=== PATIENT | male | born 1960 | race Caucasian/White ===

== ENCOUNTER 2018-11-09 10:42 | Emergency (ER) | payer SELFPAY ==
--- NOTE | 2018-11-09 11:57 | CR ---
Chest: Portable view of the chest was obtained. Comparison: No prior chest x-ray. Heart size is within normal limits for portable technique. Tortuous thoracic aorta is seen. Lungs are clear. Bony structures are grossly intact. Impression: 1. Nothing acute is appreciated on portable chest x-ray. Diagnostic code #1
--- NOTE | 2018-11-09 12:06 | EDM.PDOC ---
ED HPI GENERAL MEDICAL PROBLEM - General Chief Complaint: Cardiovascular Problem Stated Complaint: SOB AND HIGH BLOOD PRESSURE SENT BY [facility] Time Seen by Provider: 11/09/18 11:16 Source of Information: Reports: Patient, RN Notes Reviewed - History of Present Illness INITIAL COMMENTS - FREE TEXT/NARRATIVE: 58-year-old male became ill with cough, mild nasal and sinus congestion about 5 days ago. He was seen at [facility] Wednesday 4 days ago, diagnosed with influenza based on clinical symptoms. States that his cough has actually improved a fair amount although he still does have intermittent coughing occasionally productive of colored phlegm. Did have fever chills achiness for 5 days ago but those symptoms have resolved. However he states his blood pressure was extremely high about 5 days ago in the 190 some range systolic, he did take one of his mother's blood pressure meds and that did seem to help. 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 He also has been somewhat more short of breath with exertion the past few days. He did feel well enough to shovel some snow yesterday. He presented to the walk-in clinic [facility] today with the above symptoms. They felt he should be worked up. The ED. He states his blood pressure has been borderline high for several years. He has put off having that treated. No personal history for diabetes heart disease or other known medical problems. He does not smoke. - Related Data Allergies Allergy/AdvReac Type Severity Reaction Status Date / Time No Known Allergies Allergy Verified 11/09/18 11:07 Home Meds: Home Meds Aspirin [Adult Aspirin] 81 mg PO DAILY 11/09/18 [History] Past Medical History HEENT History: Reports: Impaired Vision Respiratory History: Reports: SOB Gastrointestinal History: Reports: GERD Neurological History: Reports: Head Trauma - Infectious Disease History Infectious Disease History: Reports: Chicken Pox, Influenza, Measles, Mumps, Rubella - Past Surgical History HEENT Surgical History: Reports: Oral Surgery GI Surgical History: Reports: Appendectomy, Hernia, Abdominal Social & Family History - Family History Family Medical History: Noncontributory - Tobacco Use Smoking Status *Q: Former Smoker Used Tobacco, but Quit: Yes Month/Year Tobacco Last Used: 09/2018 - Caffeine Use Caffeine Use: Reports: None - Recreational Drug Use Recreational Drug Use: No ED ROS GENERAL - Review of Systems Review Of Systems: See Below Constitutional: Denies: Fever, Chills, Diaphoresis HEENT: Reports: Rhinitis, Sinus Problem. Denies: Throat Pain Respiratory: Reports: Cough. Denies: Shortness of Breath Cardiovascular: Denies: Chest Pain GI/Abdominal: Denies: Abdominal Pain, Nausea, Vomiting Musculoskeletal: Reports: Other (generalized achiness, now better) Skin: Reports: No Symptoms Neurological: Reports: No Symptoms ED EXAM, GENERAL - Physical Exam Exam: See Below General Appearance: Alert, No Apparent Distress Eye Exam: Bilateral Eye: PERRL Throat/Mouth: Normal Inspection, Normal Oropharynx Head: Atraumatic Neck: Supple Respiratory/Chest: No Respiratory Distress, Lungs Clear, Normal Breath Sounds, Chest Non-Tender Cardiovascular: Regular Rate, Rhythm GI/Abdominal: Soft, Non-Tender Back Exam: No: CVA Tenderness (L), CVA Tenderness (R) Extremities: Normal Inspection. No: Pedal Edema, Leg Pain, Increased Warmth, Redness Neurological: Alert, Oriented, No Motor/Sensory Deficits Skin Exam: Warm, Dry, Normal Color EKG INTERPRETATION EKG Date: 11/09/18 Rhythm: NSR [place]: Normal P-Wave: Present QRS: Normal ST-T: Elevated (miminial elevation ant. leads.) Course - Vital Signs Last Recorded V/S: Last Vital Signs Temp 97.2 F 11/09/18 11:03 Pulse 71 11/09/18 11:03 Resp 19 11/09/18 11:03 BP 159/95 H 11/09/18 11:03 Pulse Ox 96 11/09/18 11:03 - Orders/Labs/Meds Orders: Active Orders 24 hr Category Date Time Status EKG 12 Lead [EKG Documentation Completion] [RC] STAT Care 11/09/18 11:30 Active Labs: Laboratory Tests 11/09/18 11/09/18 Range/Units 11:45 11:45 WBC 6.37 (4.23-9.07) K/mm3 RBC 4.74 (4.63-6.08) M/mm3 Hgb 13.6 L (13.7-17.5) gm/L Hct 40.7 (40.1-51.0) % MCV 85.9 (79.0-92.2) fl MCH 28.7 (25.7-32.2) pg MCHC 33.4 (32.2-35.5) g/dl RDW Std Deviation 40.3 (35.1-43.9) fL Plt Count 193 (163-337) K/mm3 MPV 9.6 (9.4-12.3) fl Neut % (Auto) 43.5 (34.0-67.9) % Lymph % (Auto) 39.2 (21.8-53.1) % [place] % (Auto) 15.5 H (5.3-12.2) % Eos % (Auto) 1.1 (0.8-7.0) Baso % (Auto) 0.5 (0.1-1.2) % Neut # (Auto) 2.77 (1.78-5.38) K/mm3 Lymph # (Auto) 2.50 (1.32-3.57) K/mm3 [place] # (Auto) 0.99 H (0.30-0.82) K/mm3 Eos # (Auto) 0.07 (0.04-0.54) K/mm3 Baso # (Auto) 0.03 (0.01-0.08) K/mm3 Manual Slide Review Normal smear Sodium 142 (136-145) mEq/L Potassium 4.0 (3.5-5.1) mEq/L Chloride 107 (98-107) mEq/L Carbon Dioxide 25 (21-32) mEq/L Anion Gap 14.0 (5-15) BUN 19 H (7-18) mg/dL Creatinine 1.1 (0.7-1.3) mg/dL Est Cr Clr Drug Dosing 70.11 mL/min Estimated GFR (MDRD) > 60 (>60) mL/min BUN/Creatinine Ratio 17.3 (14-18) Glucose 105 (74-106) mg/dL Calcium 9.2 (8.5-10.1) mg/dL Total Bilirubin 0.4 (0.2-1.0) mg/dL AST 46 H (15-37) U/L ALT 88 H (16-63) U/L Alkaline Phosphatase 81 (46-116) U/L Troponin I < 0.017 (0.00-0.056) ng/mL C-Reactive Protein 0.9 (<1.0) mg/dL Total Protein 7.2 (6.4-8.2) g/dl Albumin 3.6 (3.4-5.0) g/dl Globulin 3.6 gm/dL Albumin/Globulin Ratio 1.0 (1-2) - Re-Assessments/Exams Free Text/Narrative Re-Assessment/Exam: 11/09/18 12:51 Initial blood pressure was high at 159/95. Neuro and remainder of cardiorespiratory exam was completely normal. Labs come back relatively normal. And was normal. Chest x-ray is clear. EKG normal. Her sugars come down nicely into the 130s over 80s. I was considering starting him on blood pressure medicine but now with about 5 readings in the high normal range going to hold off on that for now. He is come to check 2 or 3 blood pressure readings daily for the next week or so. I have had considerable discussion with him about healthy diet, getting going with a regular exercise program which she currently is not doing. Charge instructions as documented. Departure - Departure Time of Disposition: 12:47 Disposition: Home, Self-Care 01 Condition: Fair Clinical Impression: Hypertension Qualifiers: Hypertension type: unspecified Qualified Code(s): I10 - Essential (primary) hypertension Dyspnea Qualifiers: Dyspnea type: dyspnea on exertion Qualified Code(s): R06.09 - Other forms of dyspnea Instructions: How to Take Your Blood Pressure, [id number] Referrals: PCP,Not In Area [Ordering Only Provider] - Forms: ED Department Discharge Additional Instructions: Try check your blood pressure 2 or 3 times daily, keep a record of that for your next clinic visit. Try avoid salty food is best you can. Try eat a lot of fruit and vegetables. You can research the Mediterranean diet. That has been shown to lower cardiac and stroke risk. Try get started with her regular exercise program. Plan to follow-up clinic in about one week for recheck. Return to ED as needed if symptoms worsening in any way - My Orders Last 24 Hours: My Active Orders 11/09/18 11:30 EKG 12 Lead [EKG Documentation Completion] [RC] STAT - Assessment/Plan Last 24 Hours: My Active Orders 11/09/18 11:30 EKG 12 Lead [EKG Documentation Completion] [RC] STAT
== END 2018-11-09 12:50 | disposition home or self-care (01) ==
LOC: JD.ED 10:42
DX: R06.09 Other forms of dyspnea (principal); I10 Essential (primary) hypertension; K21.9 Gastro-esophageal reflux disease without esophagitis; Z79.82 Long term (current) use of aspirin; Z87.891 Personal history of nicotine dependence
CPT/HCPCS: 36415; 71045; 71045-26; 80053; 84484; 85025; 86140; 93005; 93010; 99284; 99284-25

== ENCOUNTER 2023-04-18 09:13 | Emergency (ER) | payer OTHER ==
[2023-04-18] MEDS ORDERED: diphenhydrAMINE 50 MG Cap PO ONE (09:34)
[2023-04-18] MEDS ORDERED: Famotidine 20 MG Tab PO ONE (09:34)
[2023-04-18] MEDS ORDERED: predniSONE 20 MG Tab PO ONE (09:34)
== END 2023-04-18 10:02 | disposition home or self-care (01) ==
LOC: JD.ED 09:13
DX: T63.461A Toxic effect of venom of wasps, accidental (unintentional), initial encounter (principal); Z79.82 Long term (current) use of aspirin
CPT/HCPCS: 99282; A9270; J7512; Q0163